=== PATIENT | male | born 1945 | race Caucasian/White ===

== ENCOUNTER 2023-12-25 00:59 | Inpatient (IN) ==
[2023-12-25] MEDS ORDERED: Albuterol/Ipratropium NEB.SOL (2.5/0.5 MG) 3 ML NEB.SOLN ONE (01:03)
[2023-12-25] MEDS ORDERED: Magnesium Sulfate 2 gm BAG 2 GM/50 ML BAG ONE (01:04)
[2023-12-25] MEDS: Magnesium Sulfate 2 gm BAG 2 GM/50 ML BAG IVPB ONE (01:11)
[2023-12-25] MEDS: Albuterol/Ipratropium NEB.SOL (2.5/0.5 MG) 3 ML NEB.SOLN INH ONE (01:16)
[2023-12-25 01:22] LABS: ABS Lymphocytes 1.4 10^3/uL (1.0-4.8); ABS Monocytes 1.4 10^3/uL (0.0-1.1); ABS Neutrophils 16.3 10^3/uL (1.5-7.6); Eosinophil % 0.1 %; Hematocrit 40.3 % (38-53); Hemoglobin 13.5 g/dL (13.2-16.3); Lymphocyte % 7.3 %; Mean Corpuscular Hemoglobin 30.1 pg (27-33); Mean Corpuscular Hgb Conc 33.5 g/dL (31-36); Mean Corpuscular Volume 89.8 fL (80-97); Mean Platelet Volume 7.5 fL (7.5-11.2); Platelet Count 401 10^3/uL (150-450); Red Blood Count 4.49 10^6/uL (4.06-5.63); White Blood Count 19.1 10^3/uL (3.6-10.2)
[2023-12-25 01:33] LABS: Venous Bicarbonate HCO3 28.1 mmol/L (24-28)
[2023-12-25] MEDS ORDERED: Albuterol 2.5mg/3 ml (0.083%) NEB.SOLN INH ONE (01:46)
[2023-12-25 02:00] LABS: Albumin/Globulin Ratio 1.5 (1-3); Calcium 9.3 mg/dL (8.6-10.3); Creatinine, Serum 1.55 mg/dL (0.67-1.17); Globulin 2.6 g/dL (2-4); Potassium 4.4 mmol/L (3.5-5.0); Total Bilirubin 0.3 mg/dL (0.2-1.0); Total Protein 6.6 g/dL (6.4-8.9); eGFR CKD-EPI 46.1 (>60)
[2023-12-25] MEDS: Albuterol 2.5mg/3 ml (0.083%) NEB.SOLN INH STA (02:11)
[2023-12-25] MEDS: cefTRIAXone 1 gm/50 mL D5W 1 GM/50 ML BAG IV ONE (02:39)
[2023-12-25] MEDS: Lactated Ringers 1000 ml BAG 1,000 ML IV ONE (02:51)
[2023-12-25 02:54] LABS: High Sensitivity Troponin 1 Hr 1649 pg/mL (<20)
[2023-12-25] MEDS: Azithromycin 500 mg/250 ml NS 500 MG/250 ML BAG IVPB ONE (03:04)
[2023-12-25] MEDS: methylPREDNISolone SOD SUCC 125 mg 2 ML VIAL IV ONE (03:51)
[2023-12-25] MEDS: Albuterol/Ipratropium NEB.SOL (2.5/0.5 MG) 3 ML NEB.SOLN INH SCH (03:51)
[2023-12-25 03:57] LABS: C Reactive Protein 1.3 mg/L (<8.01)
[2023-12-25 04:15] LABS: High Sensitivity Troponin 3 Hr 2712 pg/mL (<20)
[2023-12-25] MEDS: Heparin DRIP 25,000 UNITS BAG 25,000 UNITS/250 ML BAG IV SCH (05:35)
[2023-12-25] MEDS: Heparin 5000 UNITS/ML 1 mL VIAL IV SCH (05:37)
[2023-12-25 05:42] LABS: ABS Lymphocytes 0.6 10^3/uL (1.0-4.8); ABS Monocytes 0.5 10^3/uL (0.0-1.1); ABS Neutrophils 17.3 10^3/uL (1.5-7.6); ABS Nucleated RBC 0.01 10^3/ul; Hematocrit 34.2 % (38-53); Hemoglobin 11.6 g/dL (13.2-16.3); Mean Corpuscular Hemoglobin 30.2 pg (27-33); Mean Corpuscular Hgb Conc 33.9 g/dL (31-36); Mean Corpuscular Volume 89.2 fL (80-97); Mean Platelet Volume 7.7 fL (7.5-11.2); Platelet Count 304 10^3/uL (150-450); Red Blood Count 3.84 10^6/uL (4.06-5.63); Red Cell Distribution Width 13.9 % (12-17); White Blood Count 18.4 10^3/uL (3.6-10.2)
[2023-12-25 05:57] LABS: Activated Partial Thrombo Time 24.6 seconds (26.0-38.0)
[2023-12-25] MEDS ORDERED: Heparin 5000 UNITS/ML 1 mL VIAL SUBCUT SCH (06:00)
[2023-12-25] MEDS: NS 0.9% 500 ml BAG 500 ML IV ONE (06:05)
[2023-12-25 06:21] LABS: Calcium 8.7 mg/dL (8.6-10.3); Creatinine, Serum 1.42 mg/dL (0.67-1.17); eGFR CKD-EPI 51.2 (>60)
[2023-12-25] MEDS: Aspirin EC 81 mg TAB.EC (enteric coated) PO SCH (08:07)
[2023-12-25] MEDS: PTO:BUDESONIDE/GLYCOPYR/FORMOTEROL MDI (NF) INH SCH (09:03)
[2023-12-25] MEDS ORDERED: Sulfur Hexaflouride MICROSPHR 25 MG VIAL ONE (09:33)
[2023-12-25 09:40] LABS: INR 1.07 (0.83-1.13)
[2023-12-25 09:48] LABS: HDL Cholesterol 67.9 mg/dL
[2023-12-25 11:29] LABS: High Sensitivity Troponin 1 Hr 8948 pg/mL (<20)
[2023-12-25] MEDS: methylPREDNISolone SOD SUCC 40 mg/ml 1 ml VIAL IV SCH (12:05)
[2023-12-26] MEDS: cefTRIAXone 1 gm/50 mL D5W 1 GM/50 ML BAG IV SCH (03:01)
[2023-12-26] MEDS: Azithromycin 500 mg/250 ml NS 500 MG/250 ML BAG IVPB SCH (03:50)
[2023-12-26 06:05] LABS: ABS Lymphocytes 1.1 10^3/uL (1.0-4.8); ABS Monocytes 0.5 10^3/uL (0.0-1.1); ABS Neutrophils 17.8 10^3/uL (1.5-7.6); Hematocrit 34.3 % (38-53); Hemoglobin 11.6 g/dL (13.2-16.3); Lymphocyte % 5.7 %; Mean Corpuscular Hemoglobin 29.8 pg (27-33); Mean Corpuscular Hgb Conc 33.7 g/dL (31-36); Mean Corpuscular Volume 88.6 fL (80-97); Mean Platelet Volume 7.6 fL (7.5-11.2); Platelet Count 271 10^3/uL (150-450); Red Blood Count 3.87 10^6/uL (4.06-5.63); White Blood Count 19.4 10^3/uL (3.6-10.2)
[2023-12-26 06:43] LABS: Calcium 8.7 mg/dL (8.6-10.3); Creatinine, Serum 1.09 mg/dL (0.67-1.17); Magnesium 2.1 mg/dL (1.9-2.7); Potassium 4.3 mmol/L (3.5-5.0); eGFR CKD-EPI 70.3 (>60)
[2023-12-26] MEDS: Piperacillin/Tazobac 3.375 BAG 3.375 GM/100 ML BAG IV ONE (10:08)
[2023-12-26] MEDS: methylPREDNISolone SOD SUCC 40 mg/ml 1 ml VIAL IV SCH (10:27)
[2023-12-26 11:32] LABS: Hematocrit 35.7 % (38-53); Hemoglobin 11.9 g/dL (13.2-16.3); Mean Corpuscular Hemoglobin 29.7 pg (27-33); Mean Corpuscular Hgb Conc 33.4 g/dL (31-36); Mean Corpuscular Volume 88.9 fL (80-97); Mean Platelet Volume 7.5 fL (7.5-11.2); Platelet Count 294 10^3/uL (150-450); Red Blood Count 4.02 10^6/uL (4.06-5.63); White Blood Count 22.5 10^3/uL (3.6-10.2)
[2023-12-26 11:42] LABS: ABS Lymphocytes 1.2 10^3/uL (1.0-4.8); ABS Monocytes 0.6 10^3/uL (0.0-1.1); ABS Neutrophils 20.7 10^3/uL (1.5-7.6); ABS Nucleated RBC 0.01 10^3/ul; Lymphocyte % 5.5 %
[2023-12-26 12:21] LABS: Creatinine, Serum 1.03 mg/dL (0.67-1.17); Potassium 4.2 mmol/L (3.5-5.0); eGFR CKD-EPI 75.3 (>60)
[2023-12-26 12:23] LABS: Activated Partial Thrombo Time 62.4 seconds (26.0-38.0); INR 1.05 (0.83-1.13)
[2023-12-26] MEDS ORDERED: Heparin DRIP 25,000 UNITS BAG 25,000 UNITS/250 ML BAG IV SCH (12:30)
[2023-12-26] MEDS: Heparin DRIP 25,000 UNITS BAG 25,000 UNITS/250 ML BAG IV SCH (12:43)
[2023-12-26] MEDS ORDERED: Enoxaparin 40 MG/0.4 ML SYR SUBCUT SCH (13:00)
[2023-12-26] MEDS ORDERED: Heparin 5000 UNITS/ML 1 mL VIAL IV SCH (13:00)
[2023-12-26 13:14] LABS: High Sensitivity Troponin 1 Hr 3547 pg/mL (<20)
[2023-12-27 05:54] LABS: ABS Lymphocytes 1.9 10^3/uL (1.0-4.8); ABS Monocytes 1.3 10^3/uL (0.0-1.1); ABS Neutrophils 14.6 10^3/uL (1.5-7.6); Eosinophil % 0.1 %; Hematocrit 31.6 % (38-53); Hemoglobin 10.9 g/dL (13.2-16.3); Lymphocyte % 10.6 %; Mean Corpuscular Hemoglobin 30.5 pg (27-33); Mean Corpuscular Hgb Conc 34.4 g/dL (31-36); Mean Corpuscular Volume 88.5 fL (80-97); Mean Platelet Volume 7.7 fL (7.5-11.2); Platelet Count 238 10^3/uL (150-450); Red Blood Count 3.57 10^6/uL (4.06-5.63); Red Cell Distribution Width 13.9 % (12-17); White Blood Count 17.8 10^3/uL (3.6-10.2)
[2023-12-27 06:33] LABS: Calcium 8.2 mg/dL (8.6-10.3); Creatinine, Serum 0.94 mg/dL (0.67-1.17); Magnesium 2.1 mg/dL (1.9-2.7); Potassium 4.2 mmol/L (3.5-5.0)
[2023-12-27] MEDS: NS 0.9% 500 ml BAG 500 ML IV ONE ×2 (06:40→09:00)
[2023-12-27] MEDS ORDERED: Heparin 1,000 UNIT/ML 10 ml (10,000 UNITS) CATHLAB/DIALYSIS ONE (08:03)
[2023-12-27] MEDS ORDERED: Lidocaine 1% MPF 5 ML VIAL ONE (08:03)
[2023-12-27] MEDS ORDERED: nitroGLYCERIN DRIP 0 MCG/0 ML BTL ONE (08:03)
[2023-12-27] MEDS ORDERED: Midazolam 5 mg/5 ml VIAL 1 mg/ml 5 ml VIAL (5 mg) ONE (08:03)
[2023-12-27] MEDS ORDERED: Heparin 2 UNITS/ML 1000 mls 0 ML IV ONE (08:03)
[2023-12-27] MEDS ORDERED: VERAPAMIL 2.5 MG/ML 2 ML VIAL ** 5 mg/2 ml ONE (08:03)
[2023-12-27] MEDS ORDERED: fentaNYL 100 mcg/2 ml 50 MCG/ML VIAL ONE (08:03)
[2023-12-27] MEDS: Albuterol/Ipratropium NEB.SOL (2.5/0.5 MG) 3 ML NEB.SOLN INH PRN (08:35)
[2023-12-27] MEDS: Metoprolol Tartrate 5 mg VIAL 5 ml VIAL (1 mg/ml) IV ONE (08:45)
[2023-12-27 08:55] LABS: Hematocrit 40.9 % (38-53); Hemoglobin 13.6 g/dL (13.2-16.3); Mean Corpuscular Hemoglobin 29.9 pg (27-33); Mean Corpuscular Hgb Conc 33.1 g/dL (31-36); Mean Corpuscular Volume 90.3 fL (80-97); Mean Platelet Volume 8.1 fL (7.5-11.2); Platelet Count 378 10^3/uL (150-450); Red Blood Count 4.54 10^6/uL (4.06-5.63); Red Cell Distribution Width 14.4 % (12-17); White Blood Count 34.2 10^3/uL (3.6-10.2)
[2023-12-27 09:39] LABS: ABS Basophils 0.1 10^3/uL (0.0-0.1); ABS Lymphocytes 6.3 10^3/uL (1.0-4.8); ABS Monocytes 1.8 10^3/uL (0.0-1.1); Eosinophil % 0.1 %; Lymphocyte % 18.3 %
[2023-12-27 09:43] LABS: Calcium 8.6 mg/dL (8.6-10.3); Creatinine, Serum 1.08 mg/dL (0.67-1.17); Potassium 4.9 mmol/L (3.5-5.0); eGFR CKD-EPI 71.1 (>60)
[2023-12-27] MEDS: NS 0.9% 1000 ml BAG 500 ML IV SCH (09:45)
[2023-12-27] MEDS: Midazolam PREMIXBAG 1 MG/ML NS 100 ML IV ONE (09:50)
[2023-12-27] MEDS: Labetalol IV 5 MG/ML 20 ml VIAL IV PUSH ONE (09:51)
[2023-12-27] MEDS: Etomidate 20 mg/10 ml 2 MG/ML 10 ml VIAL IV ONE (09:51)
[2023-12-27] MEDS: Norepinephrine 4 MG/250mL D5W 4,000 MCG/250 ML BAG IV ONE (09:51)
[2023-12-27] MEDS: Rocuronium 50 mg VIAL 10 mg/ml 5 ml VIAL (50 mg) ONE (09:51)
[2023-12-27] MEDS: Chlorhexidine MOUTHWASH 0.12% 15 ML UDC TOPICAL SCH (09:52)
[2023-12-27] MEDS: Midazolam 2 mg/2 ml VIAL 1 mg/ml 2 ml VIAL (2 mg) IV SLOW PU ONE (09:52)
[2023-12-27] MEDS: Phenylephrine 40 mcg/mL 10mL (400mcg) SYRINGE ONE (09:53)
[2023-12-27 09:54] LABS: INR 1.01 (0.83-1.13)
[2023-12-27 10:11] LABS: Resp Rate 19
[2023-12-27 10:12] LABS: PCO2 Arterial 65 mmHg (35-45); PO2 Arterial 178 mmHg (80-100)
[2023-12-27] MEDS: Midazolam PREMIXBAG 1 MG/ML NS 100 ML IV SCH (10:12)
[2023-12-27] MEDS: Pantoprazole VIAL 40 MG VIAL IV SCH ×2 (10:17→20:01)
[2023-12-27] MEDS: Norepinephrine 4 MG/250mL D5W 4,000 MCG/250 ML BAG IV SCH (10:25)
[2023-12-27] MEDS: Metoprolol Tartrate 5 mg VIAL 5 ml VIAL (1 mg/ml) ONE (10:25)
[2023-12-27 10:40] LABS: High Sensitivity Troponin 1 Hr 2109 pg/mL (<20)
[2023-12-27] MEDS: ZOSYN 3.375 GM x ONE DOSE over 30 miuntes IV (11:56)
[2023-12-27] MEDS ORDERED: Vancomycin per Pharmacy 1 EA NOTE FOLLOW UP SCH (12:00)
[2023-12-27] MEDS ORDERED: Zosyn per Pharmacy NOTE FOLLOW UP SCH (12:00)
[2023-12-27 12:20] LABS: Urine Appearance Turbid; Urine Bilirubin Negative (Negative); Urine Blood 3+ (Negative); Urine Color Light-Yellow; Urine Glucose Trace (Negative); Urine Ketones Negative (Negative); Urine Nitrite Negative (Negative); Urine Protein 1+ (>=30 mg/dL) (Negative); Urine Specific Gravity 1.018 (1.002-1.030); Urine Urobilinogen Negative (Negative); Urine pH 5.5 (5.0-8.0)
[2023-12-27 12:23] LABS: Hematocrit 35.4 % (38-53); Hemoglobin 11.6 g/dL (13.2-16.3); Mean Corpuscular Hemoglobin 29.4 pg (27-33); Mean Corpuscular Hgb Conc 32.8 g/dL (31-36); Mean Corpuscular Volume 89.5 fL (80-97); Mean Platelet Volume 7.8 fL (7.5-11.2); Platelet Count 272 10^3/uL (150-450); Red Blood Count 3.95 10^6/uL (4.06-5.63); White Blood Count 30.9 10^3/uL (3.6-10.2)
[2023-12-27 12:26] LABS: Urine Bacteria Absent /HPF (Absent); Urine Red Blood Cell 3+(>10/hpf) /HPF (0-Trace); Urine Squamous Epithelial Cell Present /HPF (Absent); Urine White Blood Cell 3+(>20/hpf) /HPF (0-Trace)
[2023-12-27] MEDS: Iohexol 350 (CONTRAST) 500 ML MDV IV ONE ×2 (13:11→14:01)
[2023-12-27] MEDS: Albuterol/Ipratropium NEB.SOL (2.5/0.5 MG) 3 ML NEB.SOLN INH SCH (13:23)
[2023-12-27] MEDS: Vancomycin 1,500 MG in NS 0.9% 250 ml 250 ML IVPB ONE (13:37)
[2023-12-27] MEDS: ZOSYN 3.375 GM Q8H per EXTENDED INFUSION IV SCH (16:20)
[2023-12-27 19:46] LABS: Hematocrit 32.3 % (38-53); Mean Corpuscular Hemoglobin 30.1 pg (27-33); Mean Corpuscular Volume 88.6 fL (80-97); Mean Platelet Volume 7.4 fL (7.5-11.2); Platelet Count 278 10^3/uL (150-450); Red Blood Count 3.65 10^6/uL (4.06-5.63); Red Cell Distribution Width 14.1 % (12-17); White Blood Count 25.5 10^3/uL (3.6-10.2)
[2023-12-28] MEDS: Vancomycin 1000 MG in NS 0.9% 250 ML IVPB SCH (01:53)
[2023-12-28 03:55] LABS: Hematocrit 30.5 % (38-53); Hemoglobin 10.6 g/dL (13.2-16.3); Mean Corpuscular Hemoglobin 30.8 pg (27-33); Mean Corpuscular Hgb Conc 34.8 g/dL (31-36); Mean Corpuscular Volume 88.4 fL (80-97); Mean Platelet Volume 7.9 fL (7.5-11.2); Platelet Count 241 10^3/uL (150-450); Red Blood Count 3.45 10^6/uL (4.06-5.63); Red Cell Distribution Width 14.4 % (12-17); White Blood Count 23.3 10^3/uL (3.6-10.2)
[2023-12-28 04:21] LABS: Calcium 7.7 mg/dL (8.6-10.3); Creatinine, Serum 0.93 mg/dL (0.67-1.17); Potassium 4.2 mmol/L (3.5-5.0); eGFR CKD-EPI 85.1 (>60)
[2023-12-28 04:42] LABS: Hematocrit 31.1 % (38-53); Hemoglobin 10.4 g/dL (13.2-16.3); Mean Corpuscular Hemoglobin 29.7 pg (27-33); Mean Corpuscular Hgb Conc 33.5 g/dL (31-36); Mean Corpuscular Volume 88.7 fL (80-97); Mean Platelet Volume 8.1 fL (7.5-11.2); Platelet Count 237 10^3/uL (150-450); Red Cell Distribution Width 14.1 % (12-17); White Blood Count 23.8 10^3/uL (3.6-10.2)
[2023-12-28 04:44] LABS: ABS Lymphocytes 2.1 10^3/uL (1.0-4.8); ABS Neutrophils 19.6 10^3/uL (1.5-7.6); ABS Nucleated RBC 0.01 10^3/ul; Eosinophil % 0.1 %; Lymphocyte % 8.8 %
[2023-12-28] MEDS: Albuterol/Ipratropium NEB.SOL (2.5/0.5 MG) 3 ML NEB.SOLN INH PRN (10:25)
[2023-12-28 11:34] LABS: Hematocrit 31.9 % (38-53); Hemoglobin 10.8 g/dL (13.2-16.3); Mean Corpuscular Hemoglobin 30.4 pg (27-33); Mean Corpuscular Hgb Conc 33.9 g/dL (31-36); Mean Corpuscular Volume 89.7 fL (80-97); Mean Platelet Volume 7.8 fL (7.5-11.2); Platelet Count 189 10^3/uL (150-450); Red Blood Count 3.56 10^6/uL (4.06-5.63); Red Cell Distribution Width 14.2 % (12-17); White Blood Count 17.5 10^3/uL (3.6-10.2)
[2023-12-28] MEDS: Acetaminophen IV 1 GM/100ML 1,000 MG/100 ML BAG IV SCH (21:36)
[2023-12-29 04:30] LABS: ABS Lymphocytes 1.1 10^3/uL (1.0-4.8); ABS Monocytes 1.1 10^3/uL (0.0-1.1); ABS Neutrophils 11.6 10^3/uL (1.5-7.6); ABS Nucleated RBC 0.02 10^3/ul; Hematocrit 27.1 % (38-53); Hemoglobin 9.3 g/dL (13.2-16.3); Lymphocyte % 7.6 %; Mean Corpuscular Hemoglobin 30.5 pg (27-33); Mean Corpuscular Hgb Conc 34.3 g/dL (31-36); Mean Corpuscular Volume 88.9 fL (80-97); Mean Platelet Volume 7.7 fL (7.5-11.2); Nucleated Red Blood Cells % 0.2 %/100WBC (0.0-0.8); Platelet Count 159 10^3/uL (150-450); Red Blood Count 3.05 10^6/uL (4.06-5.63); Red Cell Distribution Width 13.9 % (12-17); White Blood Count 13.8 10^3/uL (3.6-10.2)
[2023-12-29 05:10] LABS: Calcium 7.9 mg/dL (8.6-10.3); Creatinine, Serum 0.96 mg/dL (0.67-1.17); Magnesium 2.2 mg/dL (1.9-2.7); Potassium 4.3 mmol/L (3.5-5.0); eGFR CKD-EPI 81.9 (>60)
[2023-12-29] MEDS: fentaNYL 100 mcg/2 ml 50 MCG/ML VIAL IV SLOW PU PRN (06:58)
[2023-12-29] MEDS: methylPREDNISolone SOD SUCC 125 mg 2 ML VIAL IV ONE (07:30)
[2023-12-29] MEDS: Lactated Ringers 1000 ml BAG 1,000 ML IV ONE ×2 (08:30→18:22)
[2023-12-29] MEDS: Atropine 0.1 MG/ML 10 ml SYR (1 mg) IV PUSH ONE (08:30)
[2023-12-29 08:41] LABS: Resp Rate 12
[2023-12-29 08:44] LABS: PCO2 Arterial 48 mmHg (35-45); PO2 Arterial 259 mmHg (80-100)
[2023-12-29] MEDS: methylPREDNISolone SOD SUCC 125 mg 2 ML VIAL ONE (08:54)
[2023-12-29 09:01] LABS: Activated Partial Thrombo Time 21.8 seconds (26.0-38.0); INR 1.04 (0.83-1.13)
[2023-12-29] MEDS: Norepinephrine 4 MG/250mL D5W 4,000 MCG/250 ML BAG IV ONE (09:01)
[2023-12-29 09:03] LABS: ABS Lymphocytes 1.7 10^3/uL (1.0-4.8); ABS Neutrophils 15.5 10^3/uL (1.5-7.6); ABS Nucleated RBC 0.01 10^3/ul; Eosinophil % 0.1 %; Hematocrit 28.9 % (38-53); Hemoglobin 9.7 g/dL (13.2-16.3); Lymphocyte % 9.1 %; Mean Corpuscular Hemoglobin 30.1 pg (27-33); Mean Corpuscular Hgb Conc 33.6 g/dL (31-36); Mean Corpuscular Volume 89.5 fL (80-97); Mean Platelet Volume 8.1 fL (7.5-11.2); Platelet Count 189 10^3/uL (150-450); Red Blood Count 3.23 10^6/uL (4.06-5.63); Red Cell Distribution Width 14.1 % (12-17); White Blood Count 18.3 10^3/uL (3.6-10.2)
[2023-12-29] MEDS: VASOPRESSIN IVPREMIX BTL 40 UNIT/100 ML BTL IV ONE (09:06)
[2023-12-29 09:23] LABS: Calcium 8.1 mg/dL (8.6-10.3); Creatinine, Serum 0.99 mg/dL (0.67-1.17); Magnesium 2.2 mg/dL (1.9-2.7); Potassium 4.4 mmol/L (3.5-5.0); eGFR CKD-EPI 78.9 (>60)
[2023-12-29 09:24] LABS: Albumin 2.8 g/dL (3.2-5.2); Albumin/Globulin Ratio 1.6 (1-3); Calcium 8.2 mg/dL (8.6-10.3); Creatinine, Serum 0.97 mg/dL (0.67-1.17); Direct Bilirubin 0.2 mg/dL (0.03-0.18); Globulin 1.7 g/dL (2-4); Indirect Bilirubin 0.5 mg/dL (0.3-1.0); Magnesium 2.2 mg/dL (1.9-2.7); Phosphorus 3.8 mg/dL (2.5-5.0); Potassium 4.4 mmol/L (3.5-5.0); Total Bilirubin 0.7 mg/dL (0.2-1.0); Total Protein 4.5 g/dL (6.4-8.9); eGFR CKD-EPI 80.9 (>60)
[2023-12-29] MEDS: Hydrocortisone INJ 100 MG/2ML 2 ML VIAL IV SCH (10:51)
[2023-12-29] MEDS: Albuterol/Ipratropium NEB.SOL (2.5/0.5 MG) 3 ML NEB.SOLN INH SCH (12:32)
[2023-12-29 14:32] LABS: High Sensitivity Troponin 1 Hr 1087 pg/mL (<20)
[2023-12-29] MEDS: Vancomycin Trough Check NOTE FOLLOW UP ONE (18:45)
[2023-12-30] MEDS: Vancomycin 1,250 MG in NS 0.9% 250 ml 250 ML IVPB SCH (02:47)
[2023-12-30 05:08] LABS: Hematocrit 27.8 % (38-53); Hemoglobin 9.4 g/dL (13.2-16.3); Mean Corpuscular Hemoglobin 30.1 pg (27-33); Mean Corpuscular Volume 88.5 fL (80-97); Mean Platelet Volume 8.2 fL (7.5-11.2); Platelet Count 212 10^3/uL (150-450); Red Blood Count 3.14 10^6/uL (4.06-5.63); Red Cell Distribution Width 13.6 % (12-17); White Blood Count 22.3 10^3/uL (3.6-10.2)
[2023-12-30 05:13] LABS: ABS Lymphocytes 0.8 10^3/uL (1.0-4.8); ABS Neutrophils 20.4 10^3/uL (1.5-7.6); Lymphocyte % 3.5 %
[2023-12-30 05:54] LABS: Calcium 8.2 mg/dL (8.6-10.3); Creatinine, Serum 1.15 mg/dL (0.67-1.17); Magnesium 2.4 mg/dL (1.9-2.7); Potassium 4.6 mmol/L (3.5-5.0)
[2023-12-30] MEDS ORDERED: methylPREDNISolone SOD SUCC 40 mg/ml 1 ml VIAL IV SCH (09:00)
[2023-12-30 09:26] VITALS: BP 135/53
[2023-12-30] MEDS ORDERED: LORazepam 2 mg VIAL 1 ml IV PUSH PRN (11:01)
[2023-12-30] MEDS: Atropine 1% (ORAL/SL) 15 ML BTL SL PRN (11:29)
[2023-12-30] MEDS: Midazolam 2 mg/2 ml VIAL 1 mg/ml 2 ml VIAL (2 mg) IV SLOW PU ONE (11:45)
[2023-12-30] MEDS: Midazolam 2 mg/2 ml VIAL 1 mg/ml 2 ml VIAL (2 mg) ONE (12:00)
[2023-12-30] MEDS: Midazolam 2 mg/2 ml VIAL 1 mg/ml 2 ml VIAL (2 mg) IV SLOW PU SCH (13:17)
[2023-12-30] MEDS: Midazolam 2 mg/2 ml VIAL 1 mg/ml 2 ml VIAL (2 mg) IV SLOW PU PRN (13:19)
[2023-12-30] MEDS: Morphine 10 MG/ML VIAL (1 ml) IV PRN (15:39)
[2023-12-31] MEDS ORDERED: Vancomycin Trough Check NOTE FOLLOW UP ONE (13:30)
== END 2023-12-30 16:40 | disposition expired | DRG 871 ==
LOC: ED 00:59 → EDHOLD 02:53 → ICU 03:18
PROVIDERS: ADMIT Hospitalist; ATTEND Hospitalist